=== PATIENT | male | born 1950 | race Caucasian/White ===

== ENCOUNTER 2020-02-25 12:38 | Inpatient (IN) ==
[2020-02-25] MEDS ORDERED: APIXABAN 5 MG TABLET PO STA (14:41)
[2020-02-25 14:54] LABS: Basophils % 0.2 % (0.0-0.8); Eosinophils # 0.2 10*3/uL (0.0-0.87); Eosinophils % 3.5 % (0.00-10.9); Hematocrit 37.1 VOL% (42.0-52.0); Hemoglobin 11.4 GM/DL (14.0-18.0); Immature Granulocytes % 0.2 %; Immature Granulocytes Absolute 0.01 #; Lymphocytes # 0.6 10*3/uL (1.4-4.0); Lymphocytes % 12.6 % (21.2-54.2); Mean Corpuscular HGB Conc 30.7 GM/DL (32-36); Mean Platelet Volume 9.2 FL (9.6-12.0); Monocytes % 8.8 % (1.7-12.7); Neutrophils % 74.7 % (38.7-73.9); Platelet Count 334 T/CUMM (130-400); Red Blood Count 4.17 MC/CUMM (3.8-5.5); Red Cell Distribution Width 15.2 % (9.3-17.3); White Blood Count 4.9 T/CUMM (4-12)
[2020-02-25 15:07] LABS: Albumin 2.6 G/DL (3.4-5.0); Bilirubin,Total 0.5 MG/DL (0.2-1.0); Osmolality,Calculated 285.3 MOS/KG (273-304); Total Protein 6.4 G/DL (6.4-8.3)
[2020-02-25] MEDS ORDERED: DEXTROSE 10% 250 ML BAG IV PRN (16:58)
[2020-02-25] MEDS ORDERED: ONDANSETRON 4 MG/2 ML VIAL IV PRN (16:58)
[2020-02-25] MEDS ORDERED: GLUCAGON 1 MG VIAL IM PRN (16:58)
[2020-02-26] MEDS: ACETAMINOPHEN 325 MG TABLET PO PRN (03:23)
[2020-02-26 05:55] LABS: Basophils % 0.2 % (0.0-0.8); Eosinophils # 0.1 10*3/uL (0.0-0.87); Hematocrit 33.8 VOL% (42.0-52.0); Hemoglobin 10.5 GM/DL (14.0-18.0); Immature Granulocytes % 0.3 %; Immature Granulocytes Absolute 0.02 #; Lymphocytes # 0.4 10*3/uL (1.4-4.0); Lymphocytes % 7.2 % (21.2-54.2); Mean Corpuscular HGB Conc 31.1 GM/DL (32-36); Mean Corpuscular Volume 88.5 FL (87-102); Mean Platelet Volume 9.2 FL (9.6-12.0); Monocytes % 9.4 % (1.7-12.7); Neutrophils % 80.9 % (38.7-73.9); Platelet Count 280 T/CUMM (130-400); Red Blood Count 3.82 MC/CUMM (3.8-5.5); Red Cell Distribution Width 15.2 % (9.3-17.3); White Blood Count 6.1 T/CUMM (4-12)
[2020-02-26 06:23] LABS: Albumin 2.3 G/DL (3.4-5.0); Bilirubin,Total 0.6 MG/DL (0.2-1.0); Calcium 8.8 MG/DL (8.5-10.1); Osmolality,Calculated 281.4 MOS/KG (273-304); Total Protein 6.2 G/DL (6.4-8.3)
[2020-02-26] MEDS: PANTOPRAZOLE 40 MG TABLET PO SCH (09:11)
[2020-02-26] MEDS: APIXABAN 5 MG TABLET PO SCH ×2 (09:56→21:01)
[2020-02-26] MEDS: ASPIRIN EC 81 MG TABLET PO SCH (11:36)
[2020-02-26] MEDS: carvediloL 3.125 MG TABLET PO SCH ×2 (11:36→21:01)
[2020-02-26] MEDS ORDERED: ATORVASTATIN 40 MG TABLET PO SCH (21:00)
[2020-02-27 02:17] LABS: Apearance,Urine CLEAR (Clear); Bacteria,Urine Occasional /HPF (Few); Bilirubin,Urine Negative (Negative); Blood, Urine Negative (Negative); Glucose,Urine (UA) Negative (Negative); Ketones,Urine Negative (Negative); Mucus,Urine Occasional /LPF (Occasional); Nitrite,Urine Negative (Negative); Protein,Urine Negative; Urine Color Straw (Yellow); Urine Specific Gravity 1.006 (1.001-1.035); Urine Urobilinogen < 2.0 EU/DL (0.2-1.0); WBC,Urine 2 /HPF (0-6)
[2020-02-27 07:07] LABS: Basophils % 0.5 % (0.0-0.8); Eosinophils # 0.2 10*3/uL (0.0-0.87); Eosinophils % 4.1 % (0.00-10.9); Hematocrit 33.6 VOL% (42.0-52.0); Hemoglobin 10.6 GM/DL (14.0-18.0); Immature Granulocytes % 0.5 %; Immature Granulocytes Absolute 0.02 #; Lymphocytes # 0.5 10*3/uL (1.4-4.0); Lymphocytes % 11.6 % (21.2-54.2); Mean Corpuscular HGB Conc 31.5 GM/DL (32-36); Mean Corpuscular Volume 85.9 FL (87-102); Mean Platelet Volume 9.5 FL (9.6-12.0); Neutrophils % 73.3 % (38.7-73.9); Platelet Count 232 T/CUMM (130-400); Red Blood Count 3.91 MC/CUMM (3.8-5.5); Red Cell Distribution Width 15.3 % (9.3-17.3); White Blood Count 4.4 T/CUMM (4-12)
[2020-02-27 07:26] LABS: Albumin 2.4 G/DL (3.4-5.0); Bilirubin,Total 1.1 MG/DL (0.2-1.0); Calcium 8.8 MG/DL (8.5-10.1); Osmolality,Calculated 277.7 MOS/KG (273-304); Risk Ratio 3.69; Total Protein 6.3 G/DL (6.4-8.3); VLDL CHOLESTEROL 15.6 MG/DL
[2020-02-27] MEDS: ACETAMINOPHEN 325 MG TABLET PO PRN (08:26)
[2020-02-27] MEDS: ASPIRIN EC 81 MG TABLET PO SCH (08:26)
[2020-02-27] MEDS: PANTOPRAZOLE 40 MG TABLET PO SCH (08:26)
[2020-02-27] MEDS: APIXABAN 5 MG TABLET PO SCH (08:26)
[2020-02-27] MEDS: carvediloL 3.125 MG TABLET PO SCH (08:26)
[2020-02-27] MEDS ORDERED: SODIUM CHLORIDE 0.9% 500 ML IV ONE (10:13)
[2020-02-27 12:05] VITALS: BP 101/63
== END 2020-02-27 14:34 | disposition home or self-care (01) | DRG 176 ==
LOC: N.ED 12:38 → N.EDINP 16:54 → N.3E 17:59
PROVIDERS: ADMIT Internal Medicine; ATTEND Internal Medicine